=== PATIENT | male | born 1965 | race Caucasian/White ===

== ENCOUNTER → 2018-12-10 | Outpatient (CLI) | payer OTHER ==
--- NOTE | 2018-12-14 07:46 | SLEEP ---
[address] [address] SLEEP STUDY REPORT Name: DONAHUEENRIQUE J Room: [facility] Raine#: [id number] Admission: 12/10/18 Attend Phys: Vernell Roberto DO Discharge: Date of : 61 Report #: [id number] THIS REPORT FOR: //name// CC: Vernell Roberto This study has been reviewed in its entirety by a board certified sleep specialist DATE OF SERVICE: 12/10/2018 HOME SLEEP STUDY The patient is a 53-year-old who weighs 285 pounds with a BMI of 40.9. The patient's [place] score was 6. The patient underwent home sleep study performed at [facility]. Total recording time was 450 minutes. During the night study, the patient had 43 central apneas, 365 obstructive apneas, 1 mixed apnea and 116 hypopneas. The patient's apnea-hypopnea index was 69.9 per hour with a supine index of 74 per hour. Nocturnal oximetry study revealed an average oxygen saturation of 90%, the lowest of 75%. 136 minutes were spent in oxygen saturation of less than 90% and 22 minutes with saturation of less than 85%. Mean heart rate was 70 beats per minute with a maximum of 133 beats per minute. IMPRESSION: 1. Severe sleep apnea-hypopnea syndrome at an AHI of 69.9 per hour. 2. Nocturnal hypoxia secondary to obstructive sleep apnea. RECOMMENDATION: 1. The patient has severe sleep apnea with moderate to worse nocturnal hypoxia. The patient would benefit from return to the sleep lab for in-lab titration study. 2. Once optimum pressure is achieved then follow up in 4-6 weeks to assess compliance with CPAP and to document clinical improvement. 3. Weight loss is strongly advised. 4. Avoid [employer] depressants. 5. Cautioned regarding driving until symptoms of sleep apnea resolve with the use of CPAP. <ELECTRONICALLY SIGNED> By: Sekou Morgan MD 12/14/18 [id number] Erika Morgan MD /nt
== END ==
LOC: M.SLEEPLAB 12-07 15:30
DX: G47.33 Obstructive sleep apnea (adult) (pediatric) (principal); R09.02 Hypoxemia